=== PATIENT | female | born 1980 | race Hispanic/Latino ===

== ENCOUNTER 2016-10-05 09:42 | Emergency (ER) | payer OTHER ==
[~2016-10-05] VITALS: Ht 160 cm; Wt 80.7 kg
[~2016-10-05 09:42] MED LIST: ACETAMINOPHEN500 M1 PO; ALPRAZOLAM0.5 MG PO; BUSPIRONE HCL7.5 MG PO; FLEXERIL10 MG PO; HYDROCORTISONE2.51 TOP; IBUPROFEN600 MG PO; NAPROSYN 500 M500 MG PO; TRI-PREVIFEM 351 TAB PO; VITAMIN D50000 IU PO
[2016-10-05 09:51] VITALS: BP 123/57
--- NOTE | 2016-10-05 10:36 | RADIOLOGY REPORT ---
EXAMINATION: XR WRIST, RIGHT CLINICAL INFORMATION: Pain/injury COMPARISON: None TECHNIQUE: AP, lateral, oblique, and scaphoid views of the right wrist. FINDINGS: There is mild ulnar positive variance. Subchondral sclerosis is present at the ulnar aspect of the lunate as can be seen with ulnocarpal abutment. No fracture or malalignment. Bone mineralization is normal. Soft tissues are unremarkable. Alignment of the proximal carpal row is normal. IMPRESSION: 1. No acute fracture or malalignment. 2. Mild ulnar positive variance with subtle sclerosis of the ulnar aspect of the lunate, suggesting mild ulnocarpal abutment
--- NOTE | 2016-10-05 10:57 | ED HAND/WRIST INJURY COMPLAINT ---
History of Present Illness General Chief Complaint: Hand or Wrist Injury Stated Complaint: R WRIST INJURY Source: patient, old records Exam Limitations: no limitations Vital Signs & Intake/Output Vital Signs & Intake/Output Vital Signs Date Time Temp Pulse Resp B/P B/P Pulse O2 O2 Flow FiO2 Mean Ox Delivery Rate 10/05 0951 97.6 73 20 123/57 99 Room Air Allergies Coded Allergies: adhesive tape (Intermediate, RASH, SKIN TEAR 11/13/15) Reconcile Medications No Known Home Medications Triage Note: PT STATES SHE INJURED HER RIGHT WRIST AT WORK ON 09/30/16, WENT TO WALK IN CLINIC. STILL HAS PAIN. NO XRAY WAS DONE. INJURY WENT THROUGH [employer] BUT THE ORTHO DOESN'T TAKE HER INSURANCE Triage Nurses Notes Reviewed? yes Occurred: last week Duration: day(s): (5), constant Timing: recent history Injury Environment: home Severity: mild, moderate Severity Numbers: 6 Pain/Injury Location: Right: Wrist. Modifying Factors: Improves With: rest. Worsens With: movement. Associated Symptoms: none : No Patient currently breastfeeds: No HPI: 36-year-old female presents emergency room after sustaining injury to her right wrist 5 days ago while at work she felt a pop and aching sensation in her wrist after attempting to lift the patient patient states she was seen in urgent care with the symptoms began however the pain persist. She is provided a splint and given a prescription for naproxen however she is never useful. Pain is 7 out of 10. Pain is [id number] aching worse with range of motion better at rest. She denies any new injury no swelling numbness or tingling. She is right-hand dominant. There is no radiation of the pain. No forearm or elbow or shoulder pain. (CHRISTY SILVA) Past History Travel History Traveled to [place] past 21 day No Medical History Any Pertinent Medical History? see below for history Neurological: NONE EENT: NONE Cardiovascular: NONE Respiratory: NONE Gastrointestinal: NONE Hepatic: NONE Renal: NONE Musculoskeletal: NONE Psychiatric: anxiety Endocrine: NONE Blood Disorders: NONE Cancer(s): NONE Surgical History Surgical History: N Psychosocial History What is your primary language Nauruan Tobacco Use: Never used ETOH Use: denies use Illicit Drug Use: denies illicit drug use Family History Hx Contributory? No (CHRISTY SILVA) Review of Systems Review of Systems Constitutional: Reports: see HPI. All Other Systems: Reviewed and Negative Comments Review of systems: See HPI, All other systems negative. Constitutional, no chills no fever, no malaise HEENT: No visual changes no sore throat no congestion, no ear pain Cardiovascular: No chest pain , no palpitation Skin: no rashes, no change in skin Respiratory: No dyspnea no cough no sputum GI: No nausea no vomiting, no diarrhea, : No dysuria Muscle skeletal: No joint pain, no back pain, no neck pain, Neurologic: No numbness no headache Psych: No stress no depression,. Heme/endocrine: No bruising no bleeding Immunology: No lymphadenopathy (CHRISTY SILVA) Physical Exam Physical Exam General Appearance: well developed/nourished, alert, awake Hand Left: normal inspection, normal range of motion Hand Right: normal inspection, normal range of motion Comments: Well-developed well-nourished patient in no apparent distress. HEENT: Atraumatic, extraocular motion intact Neck: Supple, FROM Back: FROM Cardiovascular: Regular rate and rhythms no murmurs Respiratory: No respiratory distress. Patient speaking in full complete sentences. Breath sounds clear to auscultation bilaterally: NO W/R/R Shoulder: Atraumatic/Stable. FROM . Elbow: Atraumatic/stable. FROM. No laxity Upper arm/Forearm: Atraumatic. Nontender. No edema, 5 out of 5 conference services coordinator strength noted to bilateral upper extremities Hand/Wrist: Atraumatic/stable. Skin intact. No scaphoid tenderness, no ecchymosis no swelling mild tenderness all patient with dorsal aspect of the right wrist no obvious deformity Pulses: Normal/equal radial pulses bilaterally. Brisk cap refill Lower Extremities: full range of motion Neuro: awake, alert, and oriented to person, place and time. There were no obvious focal neurologic abnormalities. Skin: Warm & dry;No appreciable rash on exposed skin Psych: Mood affect normal, normal memory normal judgment. (CHRISTY SILVA) Progress Differential Diagnosis: contusion, compartment syndrome, dislocation, fracture, sprain Plan of Care: Orders Procedure Date/time Status Durable Medical Equipment 10/05 1125 Active URINE 10/05 0952 Complete Laboratory Tests 10/05/16 1001: Urine Test NEGATIVE xray ordered from triage I discussed with the patient at length all of their results. I had an extensive conversation regarding need for close follow up with their primary care physician/ortho this week as well as return precautions. Brace was applied I answered all of their questions, they feel comfortable with the plan and follow- up care. (CHRISTY SILVA) Diagnostic Imaging: Viewed by Me: Radiology Read. Discussed w/RAD: Radiology Read. Radiology Impression: PATIENT: KIP TEE PRESENT AGE: 36 PATIENT ACCOUNT NO: [id number] : 80 LOCATION: [facility] ORDERING PHYSICIAN: BHARGAV PALACIOS DO (TBS) SERVICE DATE: 10/05/16 EXAM TYPE: RAD - XRY-WRIST COMPLETE-RIGHT EXAMINATION: XR WRIST, RIGHT CLINICAL INFORMATION: Pain/injury COMPARISON: None TECHNIQUE: AP, lateral, oblique, and scaphoid views of the right wrist. FINDINGS: There is mild ulnar positive variance. Subchondral sclerosis is present at the ulnar aspect of the lunate as can be seen with ulnocarpal abutment. No fracture or malalignment. Bone mineralization is normal. Soft tissues are unremarkable. Alignment of the proximal carpal row is normal. IMPRESSION: 1. No acute fracture or malalignment. 2. Mild ulnar positive variance with subtle sclerosis of the ulnar aspect of the lunate, suggesting mild ulnocarpal abutment DICTATED BY: NORA CURTIS MD DATE/ TIME DICTATED:10/05/161030 HOUSEPERSON:CARL DATE/TIME TRANSCRIBED: 10/05/161030 CONFIDENTIAL, DO NOT COPY WITHOUT APPROPRIATE AUTHORIZATION. < Electronically signed in Other Vendor System> SIGNED BY: NORA CURTIS MD 10/05/16 1036 (CHRISTY SILVA) Departure Departure Time of Disposition: 1124 Disposition: HOME OR SELF CARE Condition: Stable Clinical Impression Primary Impression: Wrist sprain Referrals: NINA NIÑO,YASMANY MEJIA MD,RAVINDRA (PCP/Family) Additional Instructions: FOLLOW UP WITH ORTHOPEDIST DR WOOD THIS WEEK. BRACE AT ALL TIMES, TYLENOL OR MOTRIN EVERY 4-6 HOURS. REST, ICE RETURN WITH ANY CONCERNS Departure Forms: Customer Survey General Discharge Information Prescriptions: Current Visit Scripts No Known Home Medications (CHRISTY SILVA) PA/SAP PPM CONSULTANT Co-Sign Statement Statement: ED Attending supervision documentation- I saw and evaluated the patient. I have also reviewed all the pertinent lab results and diagnostic results. I agree with the findings and the plan of care as documented in the PA's/SAP PPM CONSULTANT's documentation. [X] I have reviewed the ED Record and agree with the PA's/SAP PPM CONSULTANT's documentation. [] Additions or exceptions (if any) to the PAs/SAP PPM CONSULTANT's note and plan are summarized below: [] (BHARGAV PALACIOS DO)
== END 2016-10-05 11:37 ==
LOC: ERH 09:42
DX: S63.501A Unspecified sprain of right wrist, initial encounter (principal); X58.XXXA Exposure to other specified factors, initial encounter; Y92.9 Unspecified place or not applicable; Y93.9 Activity, unspecified
CPT/HCPCS: 73110-RT; 81025

== ENCOUNTER 2016-10-16 22:44 | Emergency (ER) | payer OTHER ==
[~2016-10-16] VITALS: Ht 162.6 cm; Wt 81.6 kg
--- NOTE | 2016-10-17 00:31 | ED GI/GU/ABDOMINAL COMPLAINT ---
History of Present Illness General Chief Complaint: Female Urogenital Problems Stated Complaint: FALL THIS AM, JUST FOUND OUT SHE IS PREG, VAG BLEE Source: patient Exam Limitations: no limitations Vital Signs & Intake/Output Vital Signs & Intake/Output Vital Signs Date Time Temp Pulse Resp B/P B/P Pulse O2 O2 Flow FiO2 Mean Ox Delivery Rate 10/17 626 97.8 75 16 101/55 98 Room Air 10/17 0323 98.9 71 18 115/67 99 Room Air 10/17 0100 Room Air 10/16 2252 98.6 74 16 123/79 97 Room Air ED Intake and Output 10/17 0000 10/16 1200 Intake Total Output Total Balance Patient 180 lb Weight Weight Reported by Patient Measurement Method Allergies Coded Allergies: adhesive tape (Intermediate, RASH, SKIN TEAR 11/13/15) Reconcile Medications No Known Home Medications Triage Note: PT IS ?6-10 WEEK , LMP 09/02. OBGYShirin QUIROZ,HAS NOT HAD INITIAL US YET, NO ESTIMATED DUE DATE. PT REPORTS THAT SHE FELL AT 1530 AND THEN STARTED WITH ABD CRAMPING "PASSED A GOLD BALL SIZED CLOT 5 HOURS AGO NOT JUST SPOTTING" ABD CRAMPING PERSITS. PT DENIES DIZZINESS PRIOR TO FALLING "I SLIPPED COMING OUT OF THE SHOWER." Triage Nurses Notes Reviewed? yes ? Y Is pt currently ? No Duration: constant Timing: recent history Severity Numbers: 5 Location: left flank, suprapubic Radiation: no radiation Activities at Onset: physical activity HPI: Patient is a 36-year-old female who is a history who states that her last menstrual period was approximately 09/07/2016 where 3 days ago patient took a home test noted to be positive patient states that she has been vaginally spotting 3 days however today she was in the shower slipped and fell to the left flank region resulting in worsening flank and suprapubic abdominal cramping symptomspatient does note today of 1 episode of passage of tissue or clot. Patient still states that she is mildly vaginally bleeding. Denies any fever or chills back pain shortness of breath nausea vomiting dysuria hematuria. Patient did not take any medications prior to arrival. No ultrasound has been evaluated for patient's (RAÚL STALLINGS,CHRISTY) Past History Travel History Traveled to [place] past 21 day No Medical History Any Pertinent Medical History? see below for history Neurological: NONE EENT: NONE Cardiovascular: NONE Respiratory: NONE Gastrointestinal: NONE Hepatic: NONE Renal: NONE Musculoskeletal: NONE Psychiatric: anxiety Endocrine: NONE Blood Disorders: NONE Cancer(s): NONE COUNSELOR AIDE/Reproductive: Surgical History Surgical History: non-contributory, N Psychosocial History What is your primary language Burundian Tobacco Use: Refused to answer Family History Hx Contributory? No (CHRISTY MARRUFO) Review of Systems Review of Systems Constitutional: Reports: no symptoms. EENTM: Reports: no symptoms. Respiratory: Reports: no symptoms. Cardiovascular: Reports: no symptoms. GI: Reports: see HPI, abdominal pain. Genitourinary: Reports: see HPI, discharge. Musculoskeletal: Reports: no symptoms. Skin: Reports: no symptoms. Neurological/Psychological: Reports: no symptoms. Hematologic/Endocrine: Reports: see HPI, bleeding. Immunologic/Allergic: Reports: no symptoms. All Other Systems: Reviewed and Negative (CHRISTY MARRUFO) Physical Exam Physical Exam General Appearance: no apparent distress, alert, comfortable Gastrointestinal: normal bowel sounds, soft, mILD SUPRAPUBIC AND LEFT FLANK POINT TENDERNESS nORMAL INSPECTION Pelvic: normal external exam, normal bimanual exam, no cerv. motion tender, CERVICAL OS NOTED TO BE CLOSED NO ACTIVE BLEEDING NONTENDER Comments: Well-developed well-nourished person in no acute distress HEENT: Normal EENT exam Neck: Supple, no lymphadenopathy, normal range of motion without pain or tenderness Back: Nontender, no CVA tenderness. Cardiovascular: Regular rate and rhythms no murmurs rubs or gallops, normal JVP Respiratory: Chest nontender. No respiratory distress.breath sounds clear to auscultation bilaterally Extremity: No edema, no calf tenderness to palpation, normal and equal pulses. Neuro: Alert oriented x3, motor sensory normal, Skin: No appreciable rash on exposed skin, skin is warm and dry. Psych: Mood and affect is normal, memory and judgment is normal. Core Measures ACS in differential dx? No Severe Sepsis Present: No Septic Shock Present: No (CHRISTY MARRUFO) Physical Exam Head: atraumatic, normal appearance Eyes: Bilateral: normal appearance. Ears, Nose, Throat, Mouth: hearing grossly normal Neck: normal inspection Respiratory: normal breath sounds (JERONIMO NIÑO,BLANKA Campuzano) Progress Differential Diagnosis: AAA, AMI, appendicitis, biliary colic, cholecystitis, diverticulitis, ectopic , endometritis, esophageal varices, gastritis, hepatitis, hernia, hemorrhoids, ischemic bowel, inflamm bowel dis, intrauterine , kidney stone, ovarian cyst, ovarian torsion, pancreatitis, PID/ cervicitis, peptic ulcer, PUD/GERD, perforated viscous, SBO, threatened AB, UTI/ pyelo Plan of Care: Orders Procedure Date/time Status BLOOD PRODUCT PICKUP 10/17 030 Active RHO D IMMUNE GLOBULIN - 300MCG 10/17 030 Active Add-on Test (ER Only) 10/17 0134 Active TYPE & SCREEN (NOT X-MATCH) 10/17 005 Complete URINALYSIS 10/17 003 Complete Rhogam evaluation 10/17 2331 Active HUMAN BETA HCG TITRE 10/17 2331 Complete COMPREHENSIVE METABOLIC PANEL 10/17 2331 Complete CBC WITHOUT DIFFERENTIAL 10/17 2331 Complete Laboratory Tests 10/17/16 0055: Anion Gap 12, Estimated GFR > 60, BUN/Creatinine Ratio 20.0, Glucose 92, Calcium 9.2, Total Bilirubin 0.3, AST 17, ALT 31, Alkaline Phosphatase 68, Total Protein 7.7, Albumin 4.2, Globulin 3.5, Albumin/Globulin Ratio 1.2, Beta HCG, Quant 4502.3, CBC w Diff NO MAN DIFF REQ, RBC 4.28, MCV 73.5 L, MCH 22.6 L, RDW 16.8 H, MPV 9.0, Gran % 64.6, Lymphocytes % 26.9, Monocytes % 7.0, Eosinophils % 0.8 , Basophils % 0.7, Absolute Granulocytes 6.1, Absolute Lymphocytes 2.5, Absolute Monocytes 0.7 H, Absolute Eosinophils 0.1, Absolute Basophils 0.1, PUBS MCHC 30.8 L, Urinalysis LIGHT H, Urine Color STRAW, Urine Clarity CLEAR, Urine pH 6.0, Ur Specific Pettigrew 1.020, Urine Protein NEG, Urine Ketones NEG, Urine Nitrite NEG, Urine Bilirubin NEG, Urine Urobilinogen 0.2, Ur Leukocyte Esterase SMALL H, Ur Microscopic SEDIMENT EXAMINED, Urine RBC 1-3, Urine WBC 1-3 H, Ur Epithelial Cells FEW, Urine Mucus MOD H, Urine Hemoglobin MOD H, Urine Glucose NEG Patient currently in no apparent distress cervical os noted to be closed no active bleeding beta titer currently pending Discuss handout for Dr. Valle (CHRISTY MARRUFO) Initial ED EKG: none Hand-Off Endorsed To: JERONIMO NIÑO,BLANKA Campuzano Endorsed Time: 103 Pending: labs (RAÚL STALLINGS,CHRISTY) Diagnostic Imaging: Viewed by Me: Ultrasound. Discussed w/RAD: Ultrasound. Radiology Impression: transvag u/s... intrauterine sac... no ectopic... full report below. Comments: PATIENT: KIP TEE PRESENT AGE: 36 PATIENT ACCOUNT NO: [id number] : 80 LOCATION: [facility] ORDERING PHYSICIAN: BLANKA VALLE MD SERVICE DATE: 10/17/16 EXAM TYPE: US - US-TRANSVAGINAL EXAMINATION: US TRANSVAGINAL CLINICAL INFORMATION: , question ectopic COMPARISON: 11/13/2015 TECHNIQUE: Sonographic evaluation of the pelvis was performed transabdominally and transvaginally. FINDINGS: The uterus measures 10.0 cm in length and 5.8 x 6.1 cm in AP and transverse dimensions. The endometrial stripe measures 1.6 cm in thickness. There is a well-circumscribed round fluid density along the endometrium measuring 0.5 x 0.9 x 0.4 cm, likely representing an intrauterine gestational sac with mean sac diameter of 0.6 cm. No internal yolk sac or pole is visible at this time. The left ovary measures 3.5 x 2.4 x 3.8 cm and contains a few small cysts. The right ovary measures 3.0 x 1.5 x 2.1 cm. Within the right ovary there is a heterogeneous structure measuring 2.2 x 2.6 x 1.4 cm with a central anechoic region; this may reflect a corpus luteum cyst. A small amount of free fluid is visualized. IMPRESSION: 1. Small fluid collection in the uterus, likely representing an intrauterine gestational sac. No yolk sac or pole is seen at this time, which may be due to the early phase of . Follow-up first trimester ultrasound is recommended to assess for development of a pole. 2. Complex cystic structure in the right ovary, which may reflect a corpus luteum cyst. 3. No specific findings for ectopic . 4. Small volume of free fluid. DICTATED BY: JAMES ELLIOTT MD DATE/TIME DICTATED:10/17/16636 LACQUER PIN PRESS OPERATOR:CARL DATE/TIME TRANSCRIBED:10/17/16636 CONFIDENTIAL, DO NOT COPY WITHOUT APPROPRIATE AUTHORIZATION. <Electronically signed in Other Vendor System> SIGNED BY: JAMES ELLIOTT MD 10/17/1647 (JERONIMO NIÑO,BLANKA Campuzano) Departure Departure Disposition: STILL A PATIENT Condition: Stable Referrals: RAVINDRA MEJIA MD (PCP/Family) Departure Forms: Customer Survey General Discharge Information Prescriptions: Current Visit Scripts No Known Home Medications (RAÚL STALLINGS,CHRISTY) Departure Clinical Impression Primary Impression: Vaginal bleeding in Secondary Impressions: Threatened miscarriage Comments 10/17/16, 6:55am pt comfortable in ED...u/s shows IUP... pt safe for discharge with follow up by her corporate securities research analyst. discussed at length potential for threatened miscarriage. PA/SEARCH MARKETING ANALYST Co-Sign Statement Statement: ED Attending supervision documentation- [x] I saw and evaluated the patient. I have also reviewed all the pertinent lab results and diagnostic results. I agree with the findings and the plan of care as documented in the PA's/SEARCH MARKETING ANALYST's documentation. benign exam at 6:55am [] I have reviewed the ED Record and agree with the PA's/SEARCH MARKETING ANALYST's documentation. [] Additions or exceptions (if any) to the PAs/SEARCH MARKETING ANALYST's note and plan are summarized below: [] (JERONIMO NIÑO,BLANKA Campuzano)
[2016-10-17 01:11] LABS: ABSOLUTE BASOPHIL COUNT 0.1 /CUMM (0.0-0.2); ABSOLUTE EOSINOPHIL COUNT 0.1 /CUMM (0.0-0.7); ABSOLUTE GRANULOCYTE CT 6.1 /CUMM (1.4-6.5); ABSOLUTE LYMPH COUNT 2.5 /CUMM (1.2-3.4); ABSOLUTE MONOCYTE COUNT 0.7 /CUMM (0.10-0.60); BASOPHIL % 0.7 % (0.0-2.0); EOSINOPHIL % 0.8 % (0-5); GRANULOCYTE % 64.6 % (42.2-75.2); HEMATOCRIT 31.4 % (37-47); MEAN CORPUSCULAR HGB 22.6 PG (27.0-31.0); MEAN CORPUSCULAR HGB CONC 30.8 G/DL (33.0-37.0); MEAN CORPUSCULAR VOLUME 73.5 FL (81.0-99.0); PLATELET COUNT 414 /CUMM (130-400); RBC DISTRIBUTION WIDTH 16.8 % (11.5-14.5); RED BLOOD CELL CT 4.28 /CUMM (4.20-5.40); WHITE BLOOD CELL COUNT 9.4 /CUMM (4.8-10.8)
[2016-10-17 06:27] VITALS: BP 101/55
--- NOTE | 2016-10-17 06:47 | ULTRASOUND REPORT ---
EXAMINATION: US TRANSVAGINAL CLINICAL INFORMATION: , question ectopic COMPARISON: 11/13/2015 TECHNIQUE: Sonographic evaluation of the pelvis was performed transabdominally and transvaginally. FINDINGS: The uterus measures 10.0 cm in length and 5.8 x 6.1 cm in AP and transverse dimensions. The endometrial stripe measures 1.6 cm in thickness. There is a well-circumscribed round fluid density along the endometrium measuring 0.5 x 0.9 x 0.4 cm, likely representing an intrauterine gestational sac with mean sac diameter of 0.6 cm. No internal yolk sac or pole is visible at this time. The left ovary measures 3.5 x 2.4 x 3.8 cm and contains a few small cysts. The right ovary measures 3.0 x 1.5 x 2.1 cm. Within the right ovary there is a heterogeneous structure measuring 2.2 x 2.6 x 1.4 cm with a central anechoic region; this may reflect a corpus luteum cyst. A small amount of free fluid is visualized. IMPRESSION: 1. Small fluid collection in the uterus, likely representing an intrauterine gestational sac. No yolk sac or pole is seen at this time, which may be due to the early phase of . Follow-up first trimester ultrasound is recommended to assess for development of a pole. 2. Complex cystic structure in the right ovary, which may reflect a corpus luteum cyst. 3. No specific findings for ectopic . 4. Small volume of free fluid.
== END 2016-10-17 06:59 ==
LOC: ERH 22:44
PROVIDERS: Pediatrics
DX: O20.0 Threatened abortion (principal)
CPT/HCPCS: 81001; J2790